=== PATIENT | female | born 1970 | race Caucasian/White ===

== ENCOUNTER 2017-03-17 13:44 | Emergency (ER) | payer BC, OTHER ==
[~2017-03-17] VITALS: Ht 162.6 cm; Wt 71.7 kg
[2017-03-17 13:47] VITALS: BP 159/88; PULSE 110; RESP 20; TEMP 97.2; O2SAT 96
--- NOTE | 2017-03-17 13:50 | NUR ---
Pt placed to ER waiting room in stable condition.
--- NOTE | 2017-03-17 13:55 | NUR ---
Pt to ER bed 04 and to gown. Report given to ANTHONY Cat.
[2017-03-17] MEDS ORDERED: NACL 0.9% 1,000 ML IV ONE ×2 (13:59→14:15)
[2017-03-17] MEDS ORDERED: KETOROLAC TROMETHAMINE 30 MG VIAL IVP ONE (14:00)
[2017-03-17] MEDS ORDERED: ONDANSETRON HCL 4 MG/2 ML VIAL IVP ONE (14:00)
--- NOTE | 2017-03-17 14:00 | NUR ---
PER PATIENT SHE STARTED HAVING PAIN TO LEFT LOWER ABDOMEN RADIATING TO HER BACK AROUND 1 AM THIS MORNING.COMPLAINING OF MODERATE PAIN TO LEFT ABDOMEN 4/10 RADIATING TO BACK.ABDOMEN IS SOFT;NON-DISTENDED;ACTIVE BOWEL SOUNDS.PAIN GETS WORSE WHEN PALPATING.NO OTHER COMPLAIN/INJURIES PER PATIENT OR NOTED
--- NOTE | 2017-03-17 14:10 | NUR ---
# 20 gauge angiocath placed to LAC. Use of asceptic technique. Opsite placed over site. Blood return noted. Blood for lab drawn from site. Flushed with 10 cc of normal saline. No evidence of infiltration noted. Patient tolerated well.
--- NOTE | 2017-03-17 14:30 | NUR ---
ER at bedside examining patient.
[2017-03-17 14:31] LABS: BILIRUBIN,URINE NEGATIVE (NEGATIVE); BLOOD, URINE NEGATIVE (NEGATIVE); CLARITY/URINE CLEAR (CLEAR); COLOR,URINE YELLOW (YELLOW); GLUCOSE,URINE NEGATIVE (NEGATIVE); KETONES,URINE TRACE (NEGATIVE); LEUKOCYTE ESTERASE ,URINE NEGATIVE (NEGATIVE); NITRITE, URINE NEGATIVE (NEGATIVE); PH,URINE 5.5 (5.0-8.0); PROTEIN URINE NEGATIVE (NEGATIVE); UROBILINOGEN,URINE 0.2 (0.2-1.0)
[2017-03-17 14:34] LABS: BASOPHILS % (AUTO) 0.4 % (0.0-2.0); EOSINOPHILS # (AUTO) 0.1 K/uL (0.0-0.4); EOSINOPHILS % (AUTO) 1.2 % (0.0-4.0); HEMATOCRIT 44.6 % (36-48); HEMOGLOBIN 14.8 g/dL (12.0-16.0); LYMPHOCYTES # (AUTO) 1.6 K/uL (1.0-5.5); LYMPHOCYTES % (AUTO) 20.5 % (20.5-51.5); MEAN CORPUSCULAR HEMOGLOBIN 30 pg (27-31); MEAN CORPUSCULAR HGB CONC 33 % (32-36); MEAN CORPUSCULAR VOLUME 89 fL (79.0-98.0); MONOCYTES # (AUTO) 0.4 K/uL (0.0-1.0); MONOCYTES % (AUTO) 5.5 % (1.7-9.3); NEUTROPHILS # (AUTO) 5.9 K/uL (1.8-7.7); NEUTROPHILS % (AUTO) 72.4 % (40.0-70.0); PLATELET COUNT (AUTO) 249 K/uL (130-430); RED BLOOD CELL COUNT(AUTO) 5.02 MIL/uL (4.2-6.2); RED CELL DISTRIBUTION WIDTH 11.5 % (9.0-15.0)
[2017-03-17 14:39] LABS: CALCIUM 9.2 mg/dL (8.4-11.0); CREATININE 0.85 mg/dL (0.55-1.30); POTASSIUM 3.3 mmol/L (3.5-5.1)
[2017-03-17 14:46] LABS: ALBUMIN 4.1 g/dL (3.4-4.8); TOTAL BILIRUBIN 0.7 mg/dL (0.0-1.0); TOTAL PROTEIN, SERUM 7.5 g/dL (6.4-8.3)
--- NOTE | 2017-03-17 14:47 | NUR ---
PATIENT TO RADIOLOGY FOR CT
[2017-03-17] MEDS ORDERED: IOHEXOL 100 ML IV ONE (15:18)
--- NOTE | 2017-03-17 16:10 | NUR ---
Patient given written and verbal discharge instructions and verbalizes understanding. ER MD Dr. Vega discussed with patient the results and treatment provided. Patient in stable condition. ID arm band removed. IV catheter removed intact and dressing applied, no active bleeding. Rx of flagyl cipro ibuprofen given. Patient educated on pain management and to follow up with PMD. Pain Scale 0/10 Opportunity for questions provided and answered.
[2017-03-17 16:53] VITALS: BP 150/86; PULSE 103; RESP 19; TEMP 97.6; O2SAT 97
== END 2017-03-17 16:10 | disposition home or self-care (01) ==
LOC: SED 13:44
DX: K57.92 Diverticulitis of intestine, part unspecified, without perforation or abscess without bleeding (principal); I10 Essential (primary) hypertension; J45.909 Unspecified asthma, uncomplicated; Z90.710 Acquired absence of both cervix and uterus; Z90.49 Acquired absence of other specified parts of digestive tract
CPT/HCPCS: 36415; 74177; 80053; 81003; 82150; 83690; 85025; 96361; 96374; 96375; 99285; J1885; J2405; J7030; Q9967